=== PATIENT | male | born 1990 | race Two or more races ===

== ENCOUNTER 2024-03-27 20:17 | Emergency (ER) | payer MEDICAID, SELFPAY ==
[2024-03-27 20:17] VITALS: BMI 36.5
[2024-03-27 20:31] VITALS: BP 126/76; PULSE 100; RESP 18; TEMP 36.9; O2SAT 98
--- NOTE | 2024-03-27 20:37 | EKG_ITS ---
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
--- NOTE | 2024-03-27 20:37 | XR_ITS ---
Examination: PA lateral chest 2 views Technique: Upright PA lateral chest 2 views Exam date and time: 2024 hrs. Comparison March 27, 2021 Indications: Onset chest pain today. Findings: Normal heart size Lungs are clear. The osseous structures are intact Impression: No active disease
--- NOTE | 2024-03-27 20:39 | PD.EDRME ---
Rapid Medical Screening Exam RME Arrival date/time: 03/27/24 20:17 33-year-old male past medical history of EtOH presents emergency department complaining of left-sided chest pain that he describes as sharp and is 10 out of 10. Patient reports drinks twice a week and last drink was 2 days ago. Chief Complaint: Chest Pain Time Seen by Provider: 03/27/24 20:34 Vital signs: Vital Signs Temperature 98.4 F 03/27/24 20:31 Pulse Rate 100 03/27/24 20:31 Respiratory Rate 18 03/27/24 20:31 Blood Pressure 126/76 03/27/24 20:31 Pulse Oximetry (%) 98 03/27/24 20:31 Oxygen Delivery Method Room Air 03/27/24 20:31 Vital signs reviewed by provider: Yes
[2024-03-27 21:38] LABS: Basophils # (Auto) 0.1 Thou/mm3 (0.0-0.2); Basophils % (Auto) 1 % (0-2.5); Eosinophils # (Auto) 0.2 Thou/mm3 (0.0-0.5); Eosinophils % (Auto) 2 % (0-10); Hematocrit 44.3 % (41.0-53.0); Hemoglobin 15.4 g/dL (13.5-16.0); Immature Granulocytes % (Auto) 1 % (0-0); Immature Granulocytes Auto 0.04 Thou/mm3 (0.00-0.00); Lymphocytes # (Auto) 2.1 Thou/mm3 (1.0-4.8); Lymphocytes % (Auto) 24 % (10-50); Mean Corpuscular HGB Conc 34.8 g/dl (31.0-37.0); Mean Corpuscular Hemoglobin 29.6 pg (25.0-35.0); Mean Corpuscular Volume 85 fL (80-100); Monocytes # (Auto) 0.4 Thou/mm3 (0.0-0.8); Monocytes % (Auto) 5 % (0-12); Neutrophils # (Auto) 5.6 Thou/mm3 (1.8-7.7); Neutrophils % (Auto) 67 % (37-80); Nucleated Red Blood Cell % 0 /100 WBC (0); Platelet Count 253 Thou/mm3 (140-440); RDW Standard Deviation 38.9 fL (35.1-43.9); White Blood Count 8.4 Thou/mm3 (3.8-10.6)
[2024-03-27 22:04] LABS: B-Type Natriuretic Peptide < 20 pg/mL (0-100)
[2024-03-27 22:14] LABS: Alanine Aminotransferase 29 U/L (10-49); Albumin, Serum 4.7 gm/dL (3.5-5.0); Albumin/Globulin Ratio 1.7 (1.2-2.2); Alcohol, Blood Medical < 3.0 mg/dL (0-10.0); Alkaline Phosphatase 88 U/L (46-116); Anion Gap 9 (7-16); Aspartate Amino Transferase 24 U/L (0-34); BUN/Creatinine Ratio 15 Ratio (12-20); Bilirubin,Total 0.4 mg/dL (0.3-1.2); Blood Urea Nitrogen 16 mg/dL (9-23); Calcium 9.6 mg/dL (8.3-10.6); Calcium (Corrected) 9.6 mg/dL (8.5-10.1); Carbon Dioxide 28.4 mMol/L (20.0-31.0); Chloride 106 mMol/L (98-107); Creatinine (Component) 1.1 mg/dL (0.6-1.3); Estimated Creatinine Clearance 114.3 mL/min (>60); Globulin 2.8 gm/dL (2.3-3.5); Glucose 105 mg/dL (74-106); Lipase 43 U/L (12-53); Osmolality,Calculated 286 (275-295); Potassium 4.6 mMol/L (3.4-5.1); Sodium 143 mMol/L (136-145); Total Protein 7.5 gm/dL (5.7-8.2); Troponin I < 0.002 ng/mL (0.0-0.045); eGFR > 60 See Note
[2024-03-27 22:40] LABS: Amphetamine/Methamp Scrn,U Negative (Negative); Barbiturate Screen,Urine Negative (Negative); Benzodiazepines Screen,Urine Negative (Negative); Benzoylecgonine Screen, Ur Negative (Negative); Fentanyl Screen,Urine Negative (Negative); Opiate Screen,Urine Negative (Negative); THC Screen,Urine Negative (Negative)
[2024-03-27 23:21] LABS: INR 0.9 (0.9-1.3); Partial Thromboplastin Time 24.5 Seconds (22.0-36.0); Prothrombin Time 10.2 Seconds (9.0-12.2)
[2024-03-28 01:01] LABS: Troponin I < 0.002 ng/mL (0.0-0.045)
--- NOTE | 2024-03-28 01:16 | EDNOTE_ITS ---
ED Chest Pain RME/HPI General Chief Complaint: Chest Pain Stated Complaint: sharp heart pains Time Seen by Provider: 03/27/24 20:34 Source: patient Arrival date/time: 03/27/24 20:17 33-year-old male past medical history of EtOH presents emergency department complaining of intermittent left-sided chest pain that he describes as sharp and is 10 out of 10 for 4 days. Patient reports drinks twice a week and last drink was 2 days ago. Patient denies any fever, chills, cough, vomiting, sore throat, dizziness, or any other associated symptom. Mode of arrival: ambulatory Limitations: no limitations RME / HPI RME / HPI narrative: 03/27/24 20:17 33-year-old male past medical history of EtOH presents emergency department complaining of left-sided chest pain that he describes as sharp and is 10 out of 10. Patient reports drinks twice a week and last drink was 2 days ago. Related Data Previous Rx's ?Medication ?Instructions ?Recorded ondansetron 4 mg disintegrating 4 mg PO Q12H PRN nausea and 02/24/22 tablet vomiting #20 tabs ibuprofen 600 mg tablet 600 mg PO Q8H PRN pain #20 tabs 03/28/24 Allergies Allergy/AdvReac Type Severity Reaction Status Date / Time No Known Allergies Allergy Verified 06/22/23 15:04 Review of Systems Review of Systems Systems Reviewed: All systems reviewed, normal except as documented Constitutional Constitutional: Reports system reviewed and no additional complaints, except as documented, Denies body ache(s), Denies chills and Denies fever(s) Eyes Eyes: Reports system reviewed and no additional complaints, except as documented and Denies change in vision ENT Ears, Nose, Mouth, and Throat: Reports system reviewed and no additional complaints, except as documented, Denies disequilibrium, Denies dizziness, Denies sore throat and Denies vertigo Cardiovascular Cardiovascular: Reports system reviewed and no additional complaints, except as documented, Reports chest pain and Denies dyspnea Respiratory Respiratory: Reports system reviewed and no additional complaints, except as documented, Denies chest congestion, Denies cough and Denies dyspnea Gastrointestinal Gastrointestinal: Reports system reviewed and no additional complaints, except as documented, Denies abdominal pain, Denies nausea and Denies vomiting Musculoskeletal Musculoskeletal: Reports system reviewed and no additional complaints, except as documented, Denies abnormal gait and Denies arthralgias Integumentary/Breasts Skin/Breast: Reports system reviewed and no additional complaints, except as documented, Denies erythema, Denies rash and Denies wounds Neurologic Neurologic: Reports system reviewed and no additional complaints, except as documented, Denies abnormal gait, Denies disequilibrium, Denies dizziness and Denies vertigo Past Medical History Past Medical History NEUROLOGIC: Negative Neurological Disorders or Seizures CARDIAC: Negative Cardiac Disorders or Congestive Heart Failure RESPIRATORY: Negative Chronic Obstructive Pulmonary Disease (COPD) GASTROINTESTINAL: Positive Gastrointestinal Disorders, Gall Bladder Disease and Obesity GENITOURINARY: Negative Genitourinary Disorders or Renal Disease MUSCULOSKELETAL: Positive Musculoskeletal Disorders and Fractures ENDOCRINE: Negative Endocrine Disorders, Diabetes Mellitus Type 1 or Diabetes Mellitus Type 2 HEMATOLOGIC: Negative Blood Disorders, Anemia or Clotting Problems OTHER HISTORY: Positive Chicken Pox; Negative Hospitalization, Autoimmune Disease, Shingles, Falls, Blood Transfusions, Blood Transfusion Reaction, Anesthesia Reactions, Chemotherapy, Radiation Therapy or MRSA Family History FAMILY HISTORY: Negative Family Psychiatric Problems, Family Respiratory Disorde rs, Family Cardiac Disorders, Family Gastrointestinal Problems, Family Cancer, Family Surgery or Family Anesthesia Reaction Surgical History SURGICAL: Positive Open Reduction Internal Fixation Social History SMOKING STATUS: Former smoker ED Exam General Limitations: Present no limitations General appearance: Present alert and in no apparent distress Head Head exam: Present atraumatic Eye Eye exam: Present normal appearance, PERRL and EOMI ENT ENT exam: Present normal exam, normal oropharynx and mucous membranes moist Neck Neck exam: Present normal inspection, full ROM and trachea midline Chest Chest inspection: Present normal inspection and symmetric chest wall rise Respiratory Respiratory exam: Present normal lung sounds bilaterally Cardiovascular Cardiovascular exam: Present regular rate, normal rhythm and normal heart sounds Abdominal Exam Abdominal exam: Present soft and normal bowel sounds Extremities Exam Extremities exam: Present normal inspection and full ROM Back Exam Back exam: Present normal inspection and full ROM Neurological Exam Neurological exam: Present alert, oriented X3 and CN II-XII intact Psychiatric Psychiatric exam: Present normal affect and normal mood Skin Skin exam: Present warm, dry, intact and normal color Course Quality Measures none Orders Category Date Time Status EKG (ED ONLY) *Do not use* NOW Care 03/27/24 20:37 Completed EKG (ED Only) Stat Exams 03/27/24 20:37 Draft XR chest 2V Stat Exams 03/27/24 20:37 Completed Alcohol, Blood Medical Stat Lab 03/27/24 21:09 Completed BNP [B-Type Natriuretic Peptide] Stat Lab 03/27/24 21:09 Completed CBC Stat Lab 03/27/24 21:09 Completed Comprehensive Metabolic Panel Stat Lab 03/27/24 21:09 Completed Drug Screen,Urine Stat Lab 03/27/24 21:20 Completed Lipase Stat Lab 03/27/24 21:09 Completed PT [Prothrombin Time with INR] Stat Lab 03/27/24 21:09 Completed PTT [Partial Thromboplastin Time] Stat Lab 03/27/24 21:09 Completed Troponin I Stat Lab 03/27/24 21:09 Completed Troponin I Stat Lab 03/28/24 00:33 Completed Ketorolac Inj [Toradol Inj] Med 03/28/24 01:14 Discontinued 30 mg IM X1 ONE Vital Signs Vital signs: Vital Signs Temperature 98.4 F 03/27/24 20:31 Pulse Rate 100 03/27/24 20:31 Respiratory Rate 18 03/27/24 20:31 Blood Pressure 126/76 03/27/24 20:31 Pulse Oximetry (%) 98 03/27/24 20:31 Oxygen Delivery Method Room Air 03/27/24 20:31 98% room air within normal limits Procedures -ED EKG Interpretation #1: Date of EK03/27/24 Time of EK:44 Rate: 112 Interpretation: Interpreted by me EKG Impression: No acute ST-T changes, No ectopy, No ischemic changes, Sinus tachycardia and Normal QRS Chest Pain MDM Narrative MDM Narrative:: 33-year-old male past medical history of EtOH presents emergency department complaining of intermittent left-sided chest pain that he describes as sharp and is 10 out of 10 for 4 days. Patient reports drinks twice a week and last drink was 2 days ago. Patient denies any fever, chills, cough, vomiting, sore throat, dizziness, or any other associated symptom. CBC was unremarkable for any leukocytosis or anemia. CMP was unremarkable for any elevated LFTs or gross electrolyte abnormalities. 2 serial troponins were drawn which were within normal limits. EKG sinus tach. At time of discharge patient reports pain had resolved but does mention pain is intermittent. CIWA score 0. Patient GCS of 15 with steady gait. Chest x-ray was unremarkable for any pneumonic infiltrates. Patient data External records reviewed:: [facility] previous records Clinical information provided by:: patient Social determinants that could affect healthcare access:: none Patient has the following chronic illnesses:: See chart How is presenting disease/condition affected by chronic disease/condition?: uneffected by Evaluation data The following diagnostics were reviewed and interpreted by me:: lab results, radiology exam(s) and EKG tracing(s) Lab and/or radiology exams considered but not ordered:: Ordered Interpretation Summary: Interpreted by me Medications / Prescriptions Medications or Prescriptions considered but not ordered:: Ordered Medication administrations:: Medication Administration History Discontinued Medications Ketorolac Tromethamine (Ketorolac Inj 60 Mg/2 Ml Vial) 30 mg IM X1 ONE Stop: 03/28/24 01:15 Given Consultations Consultation(s) initiated? (list below): No Diagnosis Chest Pain Differential Diagnosis: fracture of rib, stable angina, unstable angina pectoris, atypical chest pain, st elevation myocardial infarction, costochondritis and biliary colic Most likely diagnosis given after review of the tests above:: Noncardiac chest pain Admission Indicated Admission indicated?: not indicated Admission Request Was there a request for admission?: No Disposition Plan Disposition Plan: Discharge Discharge Attestation Discharge Attestation: The patient and all family members were given an opportunity to ask questions and understood the discharge instructions. Discharge instructions specifically effects, indications for sooner follow up or return to the emergency department, and the expected course of current diagnosis. Patient condition: Stable Discharge Plan Plan Patient Disposition: HOME (Self Care) Disposition Comment: Stable Prescriptions/Referrals Prescriptions/Med Rec: New ibuprofen 600 mg tablet 600 mg PO Q8H PRN (Reason: pain) Qty: 20 0RF No Action ondansetron 4 mg tablet,disintegrating 4 mg PO Q12H PRN (Reason: nausea and vomiting) Qty: 20 0RF Problem List Clinical Impression: Non-cardiac chest pain Patient/Caregiver Discharge Instructions Discharge Activity: activity as tolerated Education Materials: ED Chest Pain, Noncardiac Additional Instructions: Take Tylenol or ibuprofen as needed for pain. Drink plenty of fluids and get plenty of rest. Follow-up with primary care provider in 2 to 3 days and request referral to on site property manager if symptoms persist. Return to emergency department for any worsening symptoms or as needed. Print Language: Arabic Stand Alone Forms: Kalyani Award Info., Patient Portal Info Letter PA/EVON Supervising Physician PA/USED CAR MANAGER Supervising Physician: Dr. Sosa
[2024-03-28] MEDS: KETOROLAC INJ 60 MG/2 ML VIAL 30 MG IM (01:24)
== END 2024-03-28 01:30 | disposition home or self-care (01) ==
LOC: SERX 03-28 01:48
PROVIDERS: Emergency Provider Emergency Medicine
DX: R07.89 Other chest pain (principal)
CPT/HCPCS: 36415; 71046; 80053; 80307; 80320; 83690; 83880; 84484; 85025; 85610; 85730; 93005; 96372; 99283; J1885; G0480

== ENCOUNTER 2024-04-23 20:01 | Emergency (ER) | payer MEDICAID, SELFPAY ==
[2024-04-23 20:02] VITALS: BMI 36.5
--- NOTE | 2024-04-23 20:05 | EKG_ITS ---
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
[2024-04-23 20:14] VITALS: BP 132/82; PULSE 86; RESP 18; TEMP 37.1; O2SAT 97
--- NOTE | 2024-04-23 20:35 | XR_ITS ---
Examination: PA lateral chest 2 views Technique: Upright PA lateral chest 2 views Exam date and time: April 23, 20242049 hrs. Indications: Onset chest pain today. Findings: Normal heart size. Lungs are clear. The osseous structures are intact Impression: No active disease
--- NOTE | 2024-04-23 20:35 | PD.EDRME ---
Rapid Medical Screening Exam RME Arrival date/time: 04/23/24 20:01 33-year-old male presents emergency department complaining of left-sided chest pain that radiates towards his left arm. Chief Complaint: Chest Pain Time Seen by Provider: 04/23/24 20:21 Vital signs: Vital Signs Temperature 98.8 F 04/23/24 20:14 Pulse Rate 86 04/23/24 20:14 Respiratory Rate 18 04/23/24 20:14 Blood Pressure 132/82 H 04/23/24 20:14 Pulse Oximetry (%) 97 04/23/24 20:14 Oxygen Delivery Method Room Air 04/23/24 20:14 Vital signs reviewed by provider: Yes
[2024-04-23] MEDS: ACETAMINOPHEN 500 MG TABLET 1000 MG PO (20:51)
[2024-04-23 21:00] LABS: Basophils # (Auto) 0.1 Thou/mm3 (0.0-0.2); Basophils % (Auto) 1 % (0-2.5); Eosinophils # (Auto) 0.1 Thou/mm3 (0.0-0.5); Eosinophils % (Auto) 1 % (0-10); Hematocrit 39.6 % (41.0-53.0); Hemoglobin 14.3 g/dL (13.5-16.0); Immature Granulocytes % (Auto) 0 % (0-0); Immature Granulocytes Auto 0.03 Thou/mm3 (0.00-0.00); Lymphocytes % (Auto) 24 % (10-50); Mean Corpuscular HGB Conc 36.1 g/dl (31.0-37.0); Mean Corpuscular Hemoglobin 30.2 pg (25.0-35.0); Mean Corpuscular Volume 84 fL (80-100); Monocytes # (Auto) 0.6 Thou/mm3 (0.0-0.8); Monocytes % (Auto) 7 % (0-12); Neutrophils # (Auto) 5.7 Thou/mm3 (1.8-7.7); Neutrophils % (Auto) 67 % (37-80); Nucleated Red Blood Cell % 0 /100 WBC (0); Platelet Count 235 Thou/mm3 (140-440); RDW Standard Deviation 37.4 fL (35.1-43.9); Red Blood Count 4.73 Miln/mm3 (4.50-5.90); White Blood Count 8.5 Thou/mm3 (3.8-10.6)
[2024-04-23 21:01] LABS: Amphetamine/Methamp Scrn,U Negative (Negative); Barbiturate Screen,Urine Negative (Negative); Benzodiazepines Screen,Urine Negative (Negative); Benzoylecgonine Screen, Ur Positive (Negative); Fentanyl Screen,Urine Negative (Negative); Opiate Screen,Urine Negative (Negative); THC Screen,Urine Negative (Negative)
[2024-04-23 21:24] LABS: Alanine Aminotransferase 26 U/L (10-49); Albumin, Serum 4.8 gm/dL (3.5-5.0); Albumin/Globulin Ratio 1.7 (1.2-2.2); Alcohol, Blood Medical < 3.0 mg/dL (0-10.0); Alkaline Phosphatase 88 U/L (46-116); Anion Gap 8 (7-16); Aspartate Amino Transferase 25 U/L (0-34); BUN/Creatinine Ratio 13 Ratio (12-20); Bilirubin,Total 0.5 mg/dL (0.3-1.2); Blood Urea Nitrogen 13 mg/dL (9-23); Calcium 9.8 mg/dL (8.3-10.6); Calcium (Corrected) 9.8 mg/dL (8.5-10.1); Carbon Dioxide 24.2 mMol/L (20.0-31.0); Chloride 108 mMol/L (98-107); Estimated Creatinine Clearance 125.7 mL/min (>60); Globulin 2.9 gm/dL (2.3-3.5); Glucose 88 mg/dL (74-106); Lipase 38 U/L (12-53); Osmolality,Calculated 278 (275-295); Potassium 3.7 mMol/L (3.4-5.1); Sodium 140 mMol/L (136-145); Total Protein 7.7 gm/dL (5.7-8.2); Troponin I < 0.002 ng/mL (0.0-0.045); eGFR > 60 See Note
--- NOTE | 2024-04-23 21:40 | PD.EDCHEST ---
ED Chest Pain RME/HPI General Chief Complaint: Chest Pain Stated Complaint: CHEST PAIN Time Seen by Provider: 04/23/24 20:21 Arrival date/time: 04/23/24 20:01 33 year old male present to emergency room with c/o of chest pain left side radiated down arm. pt recently used cocaine. LOCATION: Chest radiated to arm SEVERITY: Symptoms are described as being severe with limitations on activities of daily living CONTEXT: The patient is unable to identify any inciting events. DURATION/TIMING: The symptoms started approximately [one day] ago and have been constant since and have been progressive getting worse. ASSOCIATED SYMPTOMS: The patient is unable to identify any other associated symptoms. MODIFYING FACTORS: The patient is unable to identify any alleviating or aggravating symptoms. PERTINENT ROS: no fevers, no cough, no pleuritic pain, no ripping or tearing sensations, denies any lower extremity edema and no unilateral swelling, no shortness of breath no nausea,vomiting, diarrhea, no dizziness/headache no rash no loc/syncope episode no abd/back pain REVIEW OF SYSTEMS: See History of Present Illness - with the exception of those mentioned in the history of present illness, all other systems reviewed and reported as negative GENERAL: In general the patient is awake, interactive, in an emergency department gurney. HEAD/EYES/EARS/NOSE/THROAT: normo-cephalic, atraumatic, mucus membranes are moist, anicteric, palpebral conjunctiva is pink, trachea is midline. CARDIOVASCULAR: regular rate and regular rhythm, no murmurs, heart sounds are not distant, strong pulses in all four extremities that are equal and symmetric bilateral upper and lower extremities, normal capillary refill. CHEST/PULMONARY: normal chest rise and fall, good air movement, clear to auscultation bilaterally, normal inspiratory to expiratory ratios without evidence of respiratory distress. NECK: No midline/Paraspinal tenderness, no step off ROM/Strenght intact No Kernig and bruzinski sign. No trauma ABDOMEN: soft, not tender, no masses appreciated BACK: normal range of motion without pain. NEUROLOGICAL: cranio-facial features are symmetric, moves all four extremities equally without obvious limitations or weakness. EXTREMITY: no tenderness to palpation over the long bones or large joints of the bilateral upper and lower extremities, no joint swelling, no joint erythema, no signs of trauma, no unilateral leg swelling and no peripheral edema. SKIN: warm, dry, well-perfused, no jaundice, no rash, no telangiectasias or petechia. PSYCH: calm, cooperative, no evidence of psychosis or agitation RME / HPI RME / HPI narrative: 04/23/24 20:01 33-year-old male presents emergency department complaining of left-sided chest pain that radiates towards his left arm. Related Data Previous Rx's ?Medication ?Instructions ?Recorded ondansetron 4 mg disintegrating 4 mg PO Q12H PRN nausea and 02/24/22 tablet vomiting #20 tabs ibuprofen 600 mg tablet 600 mg PO Q8H PRN pain #20 tabs 03/28/24 Allergies Allergy/AdvReac Type Severity Reaction Status Date / Time No Known Allergies Allergy Verified 06/22/23 15:04 Course Course Course Narrative: Given History, Exam, and Workup I have low suspicion for ACS, Pneumothorax, Bacterial Pneumonia, Pulmonary Embolus, Tamponade, Aortic Dissection or other emergent problem as a cause for this presentation.? Last Stress Test:? never Last Heart Catheterization:? never HEART Score:?0 PERC: negative ? Quality Measures none Orders Category Date Time Status EKG (ED ONLY) *Do not use* NOW Care 04/23/24 20:05 Completed EKG (ED Only) Stat Exams 04/23/24 20:05 Draft XR chest 2V Stat Exams 04/23/24 20:35 Completed Alcohol, Blood Medical Stat Lab 04/23/24 20:44 Completed CBC Stat Lab 04/23/24 20:44 Completed Comprehensive Metabolic Panel Stat Lab 04/23/24 20:44 Completed Drug Screen,Urine Stat Lab 04/23/24 20:43 Completed Lipase Stat Lab 04/23/24 20:44 Completed Troponin I Stat Lab 04/23/24 20:44 Completed Acetaminophen Tab [Tylenol ES Tab] Med 04/23/24 20:36 Discontinued 1,000 mg PO X1 ONE Ibuprofen Tab [Motrin Tab] Med 04/23/24 21:46 Once 800 mg PO X1 ONE Reevaluation(s) Reevaluation #1: discussed in length about drug use and should decrease to avoid Mi/Nstemi in the future . pt understand and will stop use of cocaine. Vital Signs Vital signs: Vital Signs Temperature 98.8 F 04/23/24 20:14 Pulse Rate 86 04/23/24 20:14 Respiratory Rate 18 04/23/24 20:14 Blood Pressure 132/82 H 04/23/24 20:14 Pulse Oximetry (%) 97 04/23/24 20:14 Oxygen Delivery Method Room Air 04/23/24 20:14 Procedures -ED EKG Interpretation #1: Date of EK04/23/24 Rate: 77 Interpretation: Reviewed by me EKG Impression: Normal sinus rhythm, No acute ST-T changes, No ectopy, No ischemic changes and Normal QRS Chest Pain Patient data External records reviewed:: [facility] previous records Clinical information provided by:: none Social determinants that could affect healthcare access:: substance use Patient has the following chronic illnesses:: drug use How is presenting disease/condition affected by chronic disease/condition?: exacerbated by Evaluation data The following diagnostics were reviewed and interpreted by me:: lab results, radiology exam(s) and EKG tracing(s) Lab and/or radiology exams considered but not ordered:: nnone Interpretation Summary: drug: + cocaine cbc/cmp/trop wnl Medications / Prescriptions Medications or Prescriptions considered but not ordered:: n/a Medication administrations:: Medication Administration History Discontinued Medications Acetaminophen (Acetaminophen 500 Mg Tablet) 1,000 mg PO X1 ONE Stop: 04/23/24 20:37 Last Admin: 04/23/24 20:51 Dose: 1,000 mg Documented By: KF as state above Consultations Consultation(s) initiated? (list below): No Diagnosis Chest Pain Differential Diagnosis: pneumothorax, stable angina, unstable angina pectoris, atypical chest pain, st elevation myocardial infarction, costochondritis, chest pain and other (drug use ) Most likely diagnosis given after review of the tests above:: chest pain Admission Indicated Admission indicated?: not indicated Admission Request Was there a request for admission?: No Disposition Plan Disposition Plan: Discharge Discharge Attestation Discharge Attestation: The patient and all family members were given an opportunity to ask questions and understood the discharge instructions. Discharge instructions specifically effects, indications for sooner follow up or return to the emergency department, and the expected course of current diagnosis. Patient condition: Stable Discharge Plan Plan Patient Disposition: HOME (Self Care) Health Concerns: Follow with PMD as directed Take tylenol or motrin as need Return to ED if sx worsen Prescriptions/Referrals Prescriptions/Med Rec: No Action ondansetron 4 mg tablet,disintegrating 4 mg PO Q12H PRN (Reason: nausea and vomiting) Qty: 20 0RF ibuprofen 600 mg tablet 600 mg PO Q8H PRN (Reason: pain) Qty: 20 0RF Problem List Clinical Impression: Chest pain, Drug abuse Patient/Caregiver Discharge Instructions Education Materials: ED Chest Pain, Uncertain Cause Print Language: Upper Sorbian Stand Alone Forms: Kalyani Award Info., Patient Portal Info Letter
[2024-04-23] MEDS: IBUPROFEN TAB 400 MG TABLET 800 MG PO (21:53)
[2024-04-23 21:56] VITALS: RESP 18
== END 2024-04-23 21:56 | disposition home or self-care (01) ==
LOC: SERX 22:22
PROVIDERS: Emergency Provider Emergency Medicine
DX: R07.9 Chest pain, unspecified (principal); F14.10 Cocaine abuse, uncomplicated
CPT/HCPCS: 36415; 71046; 80053; 80307; 80320; 83690; 84484; 85025; 93005; 99283; A9270; G0480

== ENCOUNTER 2024-07-20 19:11 | Emergency (ER) | payer MEDICAID, SELFPAY ==
[2024-07-20 19:11] VITALS: BMI 37.2
[2024-07-20 20:05] VITALS: BP 118/71; PULSE 113; RESP 19; TEMP 37.1; O2SAT 96
--- NOTE | 2024-07-20 20:09 | PD.EDURI ---
Upper Respiratory Inf. RME/HPI General Chief Complaint: Flu Like Symptoms Stated Complaint: SORE THROAT Time Seen by Provider: 07/20/24 19:20 Arrival date/time: 07/20/24 19:11 34-year-old male with no significant medical problems presents emergency department today for complaints of tonsillar erythema tonsillomegaly patient for symptoms ongoing x 2 days pain with swallowing Limitations: no limitations Related Data Previous Rx's ?Medication ?Instructions ?Recorded ondansetron 4 mg disintegrating 4 mg PO Q12H PRN nausea and 02/24/22 tablet vomiting #20 tabs ibuprofen 600 mg tablet 600 mg PO Q8H PRN pain #20 tabs 03/28/24 amoxicillin 875 mg-potassium 1 tab PO BID 10 days #20 tabs 07/20/24 clavulanate 125 mg tablet ibuprofen 800 mg tablet 800 mg PO TID PRN pain #30 tabs 07/20/24 Allergies Allergy/AdvReac Type Severity Reaction Status Date / Time No Known Allergies Allergy Verified 06/22/23 15:04 Review of Systems Review of Systems Systems Reviewed: All systems reviewed, normal except as documented Constitutional Constitutional: Reports system reviewed and no additional complaints, except as documented, Denies fever(s) and Denies headache(s) Eyes Eyes: Reports system reviewed and no additional complaints, except as documented and Denies blurry vision ENT Ears, Nose, Mouth, and Throat: Reports system reviewed and no additional complaints, except as documented, Denies headache(s), Denies nasal congestion, Denies nasal discharge, Reports sore throat and Reports throat swelling Cardiovascular Cardiovascular: Reports system reviewed and no additional complaints, except as documented, Denies chest pain and Denies dyspnea Respiratory Respiratory: Reports system reviewed and no additional complaints, except as documented, Denies chest congestion, Denies cough and Denies dyspnea Gastrointestinal Gastrointestinal: Reports system reviewed and no additional complaints, except as documented and Denies abdominal pain Integumentary/Breasts Skin/Breast: Reports system reviewed and no additional complaints, except as documented and Denies rash Neurologic Neurologic: Reports system reviewed and no additional complaints, except as documented, Reports as per HPI and Denies headache(s) Allergic/Immunologic Allergic/Immunologic: Reports throat swelling Past Medical History Past Medical History NEUROLOGIC: Negative Neurological Disorders or Seizures CARDIAC: Negative Cardiac Disorders or Congestive Heart Failure RESPIRATORY: Negative Chronic Obstructive Pulmonary Disease (COPD) GASTROINTESTINAL: Positive Gastrointestinal Disorders, Gall Bladder Disease and Obesity GENITOURINARY: Negative Genitourinary Disorders or Renal Disease MUSCULOSKELETAL: Positive Musculoskeletal Disorders and Fractures ENDOCRINE: Negative Endocrine Disorders, Diabetes Mellitus Type 1 or Diabetes Mellitus Type 2 HEMATOLOGIC: Negative Blood Disorders, Anemia or Clotting Problems OTHER HISTORY: Positive Chicken Pox; Negative Hospitalization, Autoimmune Disease, Shingles, Falls, Blood Transfusions, Blood Transfusion Reaction, Anesthesia Reactions, Chemotherapy, Radiation Therapy or MRSA Family History FAMILY HISTORY: Negative Family Psychiatric Problems, Family Respiratory Disorders, Family Cardiac Disorders, Family Gastrointestinal Problems, Family Cancer, Family Surgery or Family Anesthesia Reaction Surgical History SURGICAL: Positive Open Reduction Internal Fixation Social History SMOKING STATUS: Never smoker ED Exam General Limitations: Present no limitations General appearance: Present alert and in no apparent distress Head Head exam: Present atraumatic Eye Eye exam: Present normal appearance, PERRL and EOMI ENT ENT exam: Present mucous membranes moist and other (Sore throat, pharyngitis, tonsillar erythema) Neck Neck exam: Present normal inspection, full ROM and trachea midline Chest Chest inspection: Present normal inspection and symmetric chest wall rise Respiratory Respiratory exam: Present normal lung sounds bilaterally Cardiovascular Cardiovascular exam: Present regular rate, normal rhythm and normal heart sounds Abdominal Exam Abdominal exam: Present soft and normal bowel sounds Extremities Exam Extremities exam: Present normal inspection and full ROM Back Exam Back exam: Present normal inspection and full ROM Neurological Exam Neurological exam: Present alert, oriented X3 and CN II-XII intact Psychiatric Psychiatric exam: Present normal affect and normal mood Skin Skin exam: Present warm, dry, intact and normal color Course Quality Measures none Orders Category Date Time Status Dexamethasone Inj [Decadron Inj] Med 07/20/24 20:09 Discontinued 10 mg PO X1 ONE Ibuprofen Susp [Motrin Susp] Med 07/20/24 20:09 Discontinued 600 mg PO X1 ONE Lidocaine 1% 20 ml [Xylocaine 1% 20 ML] Med 07/20/24 20:09 Discontinued 2.1 ml INFL X1 ONE cefTRIAXone [Rocephin] Med 07/20/24 20:09 Discontinued 1,000 mg IM X1 ONE Vital Signs Vital signs: Vital Signs Temperature 98.8 F 07/20/24 20:05 Pulse Rate 113 H 07/20/24 20:05 Respiratory Rate 19 07/20/24 20:05 Blood Pressure 118/71 07/20/24 20:05 Pulse Oximetry (%) 96 07/20/24 20:05 Oxygen Delivery Method Room Air 07/20/24 20:05 O2 saturation 96% on room air within normal limits Upper Respiratory Infection MDM Narrative MDM Narrative:: 34-year-old male with no significant medical problems presents emergency department today for complaints of tonsillar erythema tonsillomegaly patient for symptoms ongoing x 2 days pain with swallowing On exam patient well-appearing patient not acutely toxic no acute distress Based on symptomatology based on exam patient has streptococcal pharyngitis patient be treated course of antibiotics and pain medication On exam patient has no trismus no hoarseness of voice no evidence of peritonsillar abscess Patient discharged home in no distress to follow-up with primary care doctor in the next 24 to 48 hours and for any worsening symptoms to return to the ER immediately Patient data External records reviewed:: [facility] previous records Clinical information provided by:: patient Social determinants that could affect healthcare access:: none Patient has the following chronic illnesses:: None How is presenting disease/condition affected by chronic disease/condition?: no chronic disease Evaluation data The following diagnostics were reviewed and interpreted by me:: other (specify) (N/A) Lab and/or radiology exams considered but not ordered:: Consider not ordered Interpretation Summary: N/A Medications / Prescriptions Medications or Prescriptions considered but not ordered:: Given Medication administrations:: Medication Administration History Discontinued Medications Ceftriaxone Sodium (Ceftriaxone Sod Inj 1,000 Mg Vial) 1,000 mg IM X1 ONE Stop: 07/20/24 20:10 Dexamethasone Sodium Phosphate (Dexamethasone Sod Phos Inj 10 Mg/Ml Vial) 10 mg PO X1 ONE Stop: 07/20/24 20:10 Ibuprofen (Ibuprofen Susp 100 Mg/5 Ml Udc) 600 mg PO X1 ONE Stop: 07/20/24 20:10 Lidocaine HCl (Lidocaine Hcl 1% 20 Ml Vial) 2.1 ml INFL X1 ONE Stop: 07/20/24 20:10 Given Consultations Consultation(s) initiated? (list below): No Diagnosis Upper Respiratory Differential Diagnosis: upper respiratory infection, viral infection, bronchitis and influenza Most likely diagnosis given after review of the tests above:: Pharyngitis Admission Indicated Admission indicated?: not indicated Admission Request Was there a request for admission?: No Disposition Plan Disposition Plan: Discharge Discharge Attestation Discharge Attestation: The patient and all family members were given an opportunity to ask questions and understood the discharge instructions. Discharge instructions specifically effects, indications for sooner follow up or return to the emergency department, and the expected course of current diagnosis. Patient condition: Stable Discharge Plan Plan Patient Disposition: HOME (Self Care) Discharge Disposition comment: Stable Prescriptions/Referrals Prescriptions/Med Rec: New ibuprofen 800 mg tablet 800 mg PO TID PRN (Reason: pain) Qty: 30 0RF amoxicillin-pot clavulanate 875-125 mg tablet 1 tab PO BID 10 Days Qty: 20 0RF No Action ondansetron 4 mg tablet,disintegrating 4 mg PO Q12H PRN (Reason: nausea and vomiting) Qty: 20 0RF ibuprofen 600 mg tablet 600 mg PO Q8H PRN (Reason: pain) Qty: 20 0RF Problem List Clinical Impression: Acute streptococcal pharyngitis Patient/Caregiver Discharge Instructions Education Materials: ED Pharyngitis, Strep (Presumed) Additional Instructions: Please follow up with your primary care doctor in the next 24-48hrs for any worsening symptoms return here immediately Print Language: Spanish Stand Alone Forms: Kalyani Award Info., Work/School Release, Patient Portal Info Letter PA/[employer]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
[2024-07-20] MEDS: cefTRIAXone SOD INJ 1,000 MG VIAL 1000 MG IM (20:55)
[2024-07-20] MEDS: LIDOCAINE HCL 1% 20 ML VIAL 2.1 ML INFL (20:57)
[2024-07-20] MEDS: DEXAMETHASONE SOD PHOS INJ 10 MG/ML VIAL PO (20:59)
[2024-07-20] MEDS: IBUPROFEN SUSP 100 MG/5 ML UDC 600 MG PO (21:00)
== END 2024-07-20 21:03 | disposition home or self-care (01) ==
PROVIDERS: Emergency Provider Emergency Medicine
DX: J02.0 Streptococcal pharyngitis (principal)
CPT/HCPCS: 96372; 99283; J0696; J1100; J3490; A9270

== ENCOUNTER 2024-07-25 04:55 | Emergency (ER) | payer MEDICAID, SELFPAY ==
[2024-07-25 05:00] VITALS: BP 143/82; PULSE 75; RESP 18; TEMP 36.6; O2SAT 99
[2024-07-25 05:20] VITALS: PULSE 90; RESP 18; O2SAT 98; BMI 36.5
[2024-07-25 06:22] VITALS: PULSE 85; RESP 16; TEMP 37; O2SAT 99
--- NOTE | 2024-07-25 07:19 | EDNOTE_ITS ---
ED Psych RME/HPI General Chief Complaint: Psychiatric Symptoms Stated Complaint: ANXIETY Time Seen by Provider: 07/25/24 06:38 Arrival date/time: 07/25/24 04:55 RME / HPI RME / HPI Narrative: 34 year old male with no significant PMH presented to the ER due to suicidal thoughts. Per patient, he was planning on attempt of suicide by taking a bottle of ibuprofen but did not follow through with the plan. Patient states he has been having a hard week and has been trying to keep him mind busy. Patient called hotline for help and stated he has an upcoming therpay session. No further complaints were made. Related Data Previous Rx's ?Medication ?Instructions ?Recorded ondansetron 4 mg disintegrating 4 mg PO Q12H PRN nause a and 02/24/22 tablet vomiting #20 tabs ibuprofen 600 mg tablet 600 mg PO Q8H PRN pain #20 t abs 03/28/24 amoxicillin 875 mg-potassium 1 tab PO BID 10 days #20 tabs 07/20/24 clavulanate 125 mg tablet ibuprofen 800 mg tablet 800 mg PO TID PRN pain #30 t abs 07/20/24 Allergies Allergy/AdvReac Type Severity Reaction Status Date / Time No Known Allergies Allergy Verified 07/25/24 05:25 Review of Systems Review of Systems Systems Reviewed: All systems reviewed, normal except as documented Narrative Review of Systems: Gen: No fever, no chills, no weight loss EYES: No discharge, no visual changes, no pain HEENT: No ear pain, no congestion, no sore throat PULM: No shortness of breath, no cough, no congestion CV: No chest pain, no dyspnea on exertion, no palpitations GI: No nausea, no vomiting, no diarrhea, no pain, no constipation : No frequency, no urgency, no dysuria Musc/skel: No joint pain, no back pain Skin: No rash Psyc: No hallucinations, +suicidal thoughts Heme/Lymph: No easy bleeding or bruising tendencies Neuro: No weakness, no headache Past Medical History Past Medical History GASTROINTESTINAL: Positive Gastrointestinal Disorders, Gall Bladder Disease and Obesity MUSCULOSKELETAL: Positive Musculoskeletal Disorders and Fractures OTHER HISTORY: Positive Chicken Pox Surgical History SURGICAL: Positive Open Reduction Internal Fixation Social History SMOKING STATUS: Never smoker ED Exam Narrative Physical exam: GENERAL APPEARANCE: alert and oriented x 4, well-developed, well-nourished, no acute distress HEENT: normocephalic, atraumatic NECK: supple LUNGS: no respiratory distress, normal effort HEART: good peripheral perfusion ABDOMEN: non distended EXTREMITIES: atraumatic NEUROLOGIC: awake; alert and oriented x4; cranial nerves II-XII grossly intact PSYCHIATRIC: appropriate mood and affect SKIN: warm, dry, normal color; no rashes Course Quality Measures none Orders Category Date Time Status Diet Regular Diet 07/25/24 Breakfast Active Acetaminophen Stat Lab 07/25/24 07:53 Completed Alcohol, Urine Stat Lab 07/25/24 07:24 Completed CBC Stat Lab 07/25/24 12:04 Completed CMP [Comprehensive Metabolic Panel] Stat Lab 07/25/24 12:04 Completed Drug Screen,Urine Stat Lab 07/25/24 07:24 Completed Salicylate Stat Lab 07/25/24 07:53 Completed Reevaluation(s) Reevaluation #1: Patient is medically cleared and pending mental health evaluation. Time: 09:57 Reevaluation #2: firestop/containment worker evaluated patient was placed on 5150 hold. Patient is pending placement. Time: 10:35 Reevaluation #3: Patient was accepted for placement art [facility]. Time: 12:00 Vital Signs Vital signs: Vital Signs Temperature 97.9 F 07/25/24 05:00 Pulse Rate 75 07/25/24 05:00 Respiratory Rate 18 07/25/24 05:00 Blood Pressure 143/82 H 07/25/24 05:00 Pulse Oximetry (%) 99 07/25/24 05:00 Oxygen Delivery Method Room Air 07/25/24 05:00 Psych MDM Narrative MDM Narrative:: V[place]a Vega am scribing for and in the presence of Dr. Ricketts. Patient data External records reviewed:: [facility] previous records Clinical information provided by:: patient Social determinants that could affect healthcare access:: mental health Patient has the following chronic illnesses:: none How is presenting disease/condition affected by chronic disease/condition?: uneffected by Evaluation data The following diagnostics were reviewed and interpreted by me:: lab results Lab and/or radiology exams considered but not ordered:: none. Interpretation Summary: CBC/CMP within normal limits Medications / Prescriptions Medications or Prescriptions considered but not ordered:: none. Medication administrations:: see above. Consultations Consultation(s) initiated? (list below): No Diagnosis Psych Differential Diagnosis: acute psychosis, suicidal ideation and depression Most likely diagnosis given after review of the tests above:: suicidal ideation Admission Indicated Admission indicated?: not indicated Admission Request Was there a request for admission?: No Disposition Plan Disposition Plan: Transfer Discharge Plan Plan Patient Disposition: [facility] Discharge Disposition comment: [facility] Prescriptions/Referrals Prescriptions/Med Rec: No Action ondansetron 4 mg tablet,disintegrating 4 mg PO Q12H PRN (Reason: nausea and vomiting) Qty: 20 0RF ibuprofen 800 mg tablet 800 mg PO TID PRN (Reason: pain) Qty: 30 0RF amoxicillin-pot clavulanate 875-125 mg tablet 1 tab PO BID 10 Days Qty: 20 0RF ibuprofen 600 mg tablet 600 mg PO Q8H PRN (Reason: pain) Qty: 20 0RF Referrals: Angelito Harris MD [Primary Care Provider] - In 1 week Problem List Clinical Impression: Suicidal ideation Patient/Caregiver Discharge Instructions Print Language: Sammarinese Stand Alone Forms: Kalyani Award Info., Patient Portal Info Letter
[2024-07-25 08:00] LABS: Alcohol, Urine Negative (Negative); Amphetamine/Methamp Scrn,U Negative (Negative); Barbiturate Screen,Urine Negative (Negative); Benzodiazepines Screen,Urine Negative (Negative); Benzoylecgonine Screen, Ur Negative (Negative); Fentanyl Screen,Urine Negative (Negative); Opiate Screen,Urine Negative (Negative); THC Screen,Urine Negative (Negative)
[2024-07-25 08:28] LABS: Acetaminophen < 2.0 mcg/mL (10.0-20.0); Salicylate < 3.0 mg/dL
[2024-07-25 09:03] VITALS: BP 134/81; PULSE 72; RESP 18; TEMP 36.4; O2SAT 98
--- NOTE | 2024-07-25 11:27 | PC.CC ---
VANCE Carolina completed a face to face initial assessment with the pt at bedside in the ER #6. Upon entry, gag writer noticed the pt to be laying down, with flat affect and looked depressed. Analysis Manager informed of my role and informed the reason for the visit and pt understood. Pt informed gag writer that he was on the phone with the [facility] and stated that told the [facility] intake worker that he has a bottle of ibprohen in his hand and was going to end his life by ingesting the whole bottle. Pt reported that the [facility] intake worker called LE and upon arrival, the pt told LE that he had sxs of SI and wanted to end his life. Pt was BIBA to [facility] for a MH evaluation. Pt reported that he feels he is unable to safety plan as he still has active SI with plan and that would be to ingest over the counter medication or by any means possible to end the anxiety and pain he feels. Pt reports I want to stay here for a few days. Analysis Manager explained that after staffing with my supervisor shaving and splitting, and if it is determined that he will be placed on a 5150 Hold, then we would do so and will search for MH hospitalization placement. Pt stated he understood and continued to say he does not feel comfortable to leave home as he does not trust himself. After staffing with KEYSHA Sanders, it was determined that the pt will be on a hold 5150 and we will look for placement. ER provider is aware that pt is on a Hold and agrees. RN is aware of the hold.
[2024-07-25 12:15] LABS: Basophils # (Auto) 0.1 Thou/mm3 (0.0-0.2); Basophils % (Auto) 1 % (0-2.5); Eosinophils # (Auto) 0.1 Thou/mm3 (0.0-0.5); Eosinophils % (Auto) 1 % (0-10); Hematocrit 36.7 % (41.0-53.0); Hemoglobin 13.1 g/dL (13.5-16.0); Immature Granulocytes % (Auto) 1 % (0-0); Immature Granulocytes Auto 0.05 Thou/mm3 (0.00-0.00); Lymphocytes # (Auto) 2.1 Thou/mm3 (1.0-4.8); Lymphocytes % (Auto) 30 % (10-50); Mean Corpuscular HGB Conc 35.7 g/dl (31.0-37.0); Mean Corpuscular Volume 84 fL (80-100); Monocytes # (Auto) 0.3 Thou/mm3 (0.0-0.8); Monocytes % (Auto) 4 % (0-12); Neutrophils # (Auto) 4.4 Thou/mm3 (1.8-7.7); Neutrophils % (Auto) 64 % (37-80); Nucleated Red Blood Cell % 0 /100 WBC (0); Platelet Count 259 Thou/mm3 (140-440); RDW Standard Deviation 37.3 fL (35.1-43.9); Red Blood Count 4.37 Miln/mm3 (4.50-5.90); White Blood Count 6.9 Thou/mm3 (3.8-10.6)
[2024-07-25 12:30] LABS: Alanine Aminotransferase 45 U/L (10-49); Albumin, Serum 4.3 gm/dL (3.5-5.0); Albumin/Globulin Ratio 1.5 (1.2-2.2); Alkaline Phosphatase 86 U/L (46-116); Anion Gap 9 (7-16); Aspartate Amino Transferase 27 U/L (0-34); BUN/Creatinine Ratio 7 Ratio (12-20); Bilirubin,Total 0.5 mg/dL (0.3-1.2); Blood Urea Nitrogen 7 mg/dL (9-23); Calcium 8.6 mg/dL (8.3-10.6); Calcium (Corrected) 8.6 mg/dL (8.5-10.1); Chloride 108 mMol/L (98-107); Estimated Creatinine Clearance 124.5 mL/min (>60); Globulin 2.8 gm/dL (2.3-3.5); Glucose 104 mg/dL (74-106); Osmolality,Calculated 279 (275-295); Sodium 141 mMol/L (136-145); Total Protein 7.1 gm/dL (5.7-8.2); eGFR > 60 See Note
--- NOTE | 2024-07-25 13:37 | PC.CC ---
ASW received a [facility] who [facility] pt. Accepting Dr. Shaw, [address] and Ros wants pt there at 1500. ASW will arrange transportation
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
--- NOTE | 2024-07-25 14:51 | PC.NURSE ---
I CALLED [facility] AND SPOKE TO MARYBETH TREADWELL TO WHOM I GAVE REPORT TOO.
[2024-07-25 15:34] VITALS: BP 110/69; PULSE 86; RESP 18; TEMP 36.3; O2SAT 98
[2024-07-25 16:07] VITALS: BP 119/69; PULSE 86; RESP 18; TEMP 36.6; O2SAT 98
== END 2024-07-25 16:11 ==
PROVIDERS: Emergency Provider Emergency Medicine; PCP Family Medicine
DX: R45.851 Suicidal ideations (principal); Z75.1 Person awaiting admission to adequate facility elsewhere
CPT/HCPCS: 36415; 80053; 80307; 80320; 80329; 85025; 90839; 96127; 99285; G0480